=== PATIENT | male | born 1955 | race Caucasian/White ===

== ENCOUNTER → 2020-02-13 | Outpatient (CLI) | payer BC | END | disposition home or self-care (01) | LOC: ORTHO 12:36 | PROVIDERS: ATTEND Orthopaedic Surgery | DX: M25.561 Pain in right knee (principal) ==

== ENCOUNTER → 2020-03-03 | Outpatient (CLI) | payer BC | END | disposition home or self-care (01) | LOC: MRI 13:00 | PROVIDERS: ATTEND Orthopaedic Surgery | DX: S83.241A Other tear of medial meniscus, current injury, right knee, initial encounter (principal); X58.XXXA Exposure to other specified factors, initial encounter; Y93.89 Activity, other specified; Y92.89 Other specified places as the place of occurrence of the external cause; Y99.8 Other external cause status ==

== ENCOUNTER → 2021-04-15 | Outpatient (CLI) | payer MEDICARE | END | disposition home or self-care (01) | LOC: MRI 12:18 | PROVIDERS: ATTEND Orthopaedic Surgery | DX: S83.241A Other tear of medial meniscus, current injury, right knee, initial encounter (principal); M70.61 Trochanteric bursitis, right hip; X58.XXXA Exposure to other specified factors, initial encounter; Y93.89 Activity, other specified; Y92.89 Other specified places as the place of occurrence of the external cause; Y99.8 Other external cause status; Z96.641 Presence of right artificial hip joint ==

== ENCOUNTER → 2021-07-08 | Outpatient (CLI) | payer MEDICARE ==
[2021-07-08 16:38] LABS: HEMATOCRIT 40.8 % (42.0-52.0); MEAN CELL VOLUME 95.1 fl (80.0-94.0); MEAN CORPUSCULAR HGB 32.2 pg (27.0-31.0); MEAN CORPUSCULAR HGB CONC 33.8 g/dl (33.0-37.0); MEAN PLATELET VOLUME 9.8 fl (9.6-12.3); PLATELET COUNT AUTOMATED 322 10*3/uL (130-400); RED BLOOD COUNT 4.29 10*6/uL (4.50-5.90); RED CELL DISTRI WIDTH 14.4 % (0-14.5); WHITE BLOOD COUNT 6.9 10*3/uL (4.8-10.8)
[2021-07-08 17:10] LABS: BUN 14 mg/dl (7-24); CHLORIDE 108 mmol/L (98-107); CHOLESTEROL 163 mg/dL (<200); CREATININE 0.92 mg/dL (0.70-1.30); LDL CHOLESTEROL 66 mg/dL (9-159); POTASSIUM 3.8 mmol/L (3.5-5.1); SGOT/AST 18 IU/L (3-35); SODIUM 140 mmol/L (136-145); TOTAL PROTEIN 7.8 gm/dL (6.4-8.2); TRIGLYCERIDES 262 mg/dl (<150)
[2021-07-08 17:16] LABS: ALKALINE PHOSPHATASE 58 U/L (45-117); SGPT/ALT 31 U/L (12-78)
[2021-07-08 17:47] LABS: MANUAL DIFF REFLEX YES
[2021-07-08 18:28] LABS: ATYPICAL LYMPHS 4 % (0-0); BASOPHILS 2 % (0-1); TOTAL CELLS COUNTED 100 #CELLS
[2021-07-08 18:29] LABS: PLATELET SUFFICIENCY NORMAL (NORMAL); STOMATOCYTE FEW
[2021-07-08 21:15] LABS: BILIRUBIN Negative (Negative); BLOOD Negative (Negative); CLARITY Clear (Clear); COLOR Yellow (Yellow); GLUCOSE Negative (Negative); KETONE Trace (Negative); LEUKO ESTERASE Negative (Negative); NITRITE Negative (Negative); SPECIFIC GRAVITY >= 1.030 (1.001-1.030); UROBILINOGEN 0.2 E.U./dl (0.0-1.0)
[2021-07-08 21:53] LABS: MUCOUS 3+; URIC ACID CRYSTALS 1+; WBC 0-2 wbc/hpf (0-5)
[2021-07-08 21:54] LABS: EPITHELIAL CELLS 0-2
== END | disposition home or self-care (01) ==
LOC: LAB 16:09
PROVIDERS: ATTEND Internal Medicine
DX: E11.9 Type 2 diabetes mellitus without complications (principal); E78.5 Hyperlipidemia, unspecified

== ENCOUNTER → 2021-08-28 | Outpatient (CLI) | payer MEDICARE | END | disposition home or self-care (01) | LOC: ORTHO 01:49 | PROVIDERS: ATTEND Orthopaedic Surgery | DX: M25.552 Pain in left hip (principal) ==

== ENCOUNTER → 2022-03-11 | Day surgery (SDC) | payer MEDICARE ==
[2022-03-09 17:52] LABS: CHLORIDE 103 mmol/L (98-107); POTASSIUM 3.8 mmol/L (3.4-5.1); SODIUM 138 mmol/L (136-145)
[2022-03-09 17:58] LABS: CREATININE 0.79 mg/dL (0.70-1.30)
[2022-03-09 17:59] LABS: BUN 7 mg/dl (9-23)
[~2022-03-11] VITALS: Ht 175.2 cm; Wt 111.1 kg
[~2022-03-11] MED LIST: ALTACE2.5 M1 PO; ASPIRIN81 M1 PO; BELSOMRA20 MG PO; JANUVIA100 MG PO; MEDI-MECLIZINE25 MG PO; METFORMIN HYDR500 MG PO; OMEPRAZOLE40 MG PO; OXYCODONE HYDRO30 MG PO; PROTONIX TR40 M1 PO; TEGRETOL-XR 40400 MG PO; TOPROL XL25 MG PO; XARE20MG PO
[2022-03-11 07:10] VITALS: BP 149/81
[2022-03-11 08:31] VITALS: BP 138/78
[2022-03-11 08:46] VITALS: BP 137/79
[2022-03-11 09:01] VITALS: BP 140/79
== END | disposition home or self-care (01) ==
LOC: SDC 03-08 14:45
PROVIDERS: ATTEND Orthopaedic Surgery
DX: M65.321 Trigger finger, right index finger (principal); M65.311 Trigger thumb, right thumb; M65.841 Other synovitis and tenosynovitis, right hand; M65.331 Trigger finger, right middle finger; E11.9 Type 2 diabetes mellitus without complications; M86.9 Osteomyelitis, unspecified; Z86.73 Personal history of transient ischemic attack (TIA), and cerebral infarction without residual deficits; I10 Essential (primary) hypertension; Z79.899 Other long term (current) drug therapy

== ENCOUNTER → 2022-03-30 | Day surgery (SDC) | payer MEDICARE ==
[~2022-03-30] VITALS: Ht 175.2 cm; Wt 111.1 kg
[2022-03-30 07:50] VITALS: BP 144/75
[2022-03-30 09:00] VITALS: BP 132/78
[2022-03-30 09:13] VITALS: BP 136/79
[2022-03-30 09:30] VITALS: BP 124/63
== END | disposition home or self-care (01) ==
LOC: SDC 04:16
PROVIDERS: ATTEND Orthopaedic Surgery
DX: T81.30XA Disruption of wound, unspecified, initial encounter (principal); I10 Essential (primary) hypertension; E11.9 Type 2 diabetes mellitus without complications; Z86.73 Personal history of transient ischemic attack (TIA), and cerebral infarction without residual deficits; E78.00 Pure hypercholesterolemia, unspecified; I25.10 Atherosclerotic heart disease of native coronary artery without angina pectoris; Z88.8 Allergy status to other drugs, medicaments and biological substances; Z79.899 Other long term (current) drug therapy; Y82.8 Other medical devices associated with adverse incidents

== ENCOUNTER → 2022-06-04 | Outpatient (CLI) | payer MEDICARE | END | disposition home or self-care (01) | LOC: ORTHO 11:31 | PROVIDERS: ATTEND Orthopaedic Surgery | DX: M16.12 Unilateral primary osteoarthritis, left hip (principal) ==

== ENCOUNTER → 2023-06-13 | Outpatient (CLI) | payer MEDICARE | END | disposition home or self-care (01) | LOC: ORTHO 01:41 | PROVIDERS: ATTEND Orthopaedic Surgery | DX: M79.642 Pain in left hand (principal) ==

== ENCOUNTER → 2023-06-28 | Day surgery (SDC) | payer MEDICARE ==
[2023-06-24 16:09] LABS: BUN 7 mg/dl (9-23); CHLORIDE 104 mmol/L (98-107); POTASSIUM 4.2 mmol/L (3.4-5.1)
[~2023-06-28] VITALS: Ht 175.2 cm; Wt 111.1 kg
[~2023-06-28] MED LIST changes: +BUPIVACAINE 0.5% 10 ML VIAL ONE; +COREG12.5 M1 PO; +Ketamine Hydrochloride 500 MG/10 ML VIAL IV ONE; +Lactated Ringer's Solution 0 ML IV ONE; +Lidocaine Hydrochloride 5 ML AMP ONE; +Midazolam Hydrochloride 2 MG/2 ML VIAL IV ONE; +Midazolam Hydrochloride 2 MG/2 ML VIAL IV STA; +PROPOFOL 200 MG/20 ML VIAL IV ONE; +SODIUM CHLORIDE 0.9% 1,000 ML IV ONE; +SODIUM CHLORIDE 0.9% 1,000 ML IV SCH; +ceFAZolin sodium/sodium chlor 1 GM in SYRINGE INFUSION 10 ML IV STA; +ceFAZolin sodium/sodium chlor 10 ML IV ONE
[2023-06-28 06:30] VITALS: BP 139/75
[2023-06-28 08:25] VITALS: BP 134/62
[2023-06-28 08:39] VITALS: BP 122/64
[2023-06-28 08:55] VITALS: BP 129/69
== END | disposition home or self-care (01) ==
LOC: SDC 06-24 10:15
PROVIDERS: ATTEND Orthopaedic Surgery
DX: M65.312 Trigger thumb, left thumb (principal); M65.332 Trigger finger, left middle finger; I10 Essential (primary) hypertension; I25.10 Atherosclerotic heart disease of native coronary artery without angina pectoris; K21.9 Gastro-esophageal reflux disease without esophagitis; E78.00 Pure hypercholesterolemia, unspecified; F10.90 Alcohol use, unspecified, uncomplicated; Z86.73 Personal history of transient ischemic attack (TIA), and cerebral infarction without residual deficits; Z98.890 Other specified postprocedural states; Z79.82 Long term (current) use of aspirin; Z79.84 Long term (current) use of oral hypoglycemic drugs; Z79.899 Other long term (current) drug therapy; Z91.048 Other nonmedicinal substance allergy status; Z88.8 Allergy status to other drugs, medicaments and biological substances

== ENCOUNTER → 2024-07-04 | Outpatient (CLI) | payer MEDICARE ==
[~2024-07-04] MED LIST changes: -BUPIVACAINE 0.5% 10 ML VIAL ONE; -Ketamine Hydrochloride 500 MG/10 ML VIAL IV ONE; -Lactated Ringer's Solution 0 ML IV ONE; -Lidocaine Hydrochloride 5 ML AMP ONE; -Midazolam Hydrochloride 2 MG/2 ML VIAL IV ONE; -Midazolam Hydrochloride 2 MG/2 ML VIAL IV STA; -PROPOFOL 200 MG/20 ML VIAL IV ONE; -SODIUM CHLORIDE 0.9% 1,000 ML IV ONE; -SODIUM CHLORIDE 0.9% 1,000 ML IV SCH; -ceFAZolin sodium/sodium chlor 1 GM in SYRINGE INFUSION 10 ML IV STA; -ceFAZolin sodium/sodium chlor 10 ML IV ONE
== END | disposition home or self-care (01) ==
LOC: ORTHO 03:07
PROVIDERS: ATTEND Orthopaedic Surgery
DX: M17.11 Unilateral primary osteoarthritis, right knee (principal); M25.461 Effusion, right knee; M70.61 Trochanteric bursitis, right hip; Z96.641 Presence of right artificial hip joint